=== PATIENT | female | born 1940 | race Caucasian/White ===

== ENCOUNTER 2019-02-22 15:07 | Inpatient (IN) | payer OTHER ==
[2019-02-22] MEDS: morphine 2 MG INJ IV (15:28)
[2019-02-22] MEDS: SOD CHLORIDE 0.9% 500 ML IV (15:28)
[2019-02-22] MEDS: ONDANSETRON 4 MG INJ IV (15:28)
[2019-02-22 15:32] LABS: ADD MAN DIFF? NO
[2019-02-22 15:38] LABS: WHITE BLOOD COUNT 8.4 10^3/ul (4.8-10.8)
[2019-02-22 15:38] LABS: BASOPHIL # 0.1 10^3/ul (0.0-0.1); BASOPHILS % 0.6 % (0.0-2.0); EOSINOPHILS # 0.5 10^3/ul (0.0-0.5); HEMATOCRIT 28.8 % (37.0-47.0); HEMOGLOBIN 9.1 g/dl (12.0-16.0); LYMPHOCYTES # 1.6 10^3/ul (0.8-2.9); LYMPHOCYTES % 18.5 % (15.0-51.0); MEAN CORPUSCULAR HEMOGLOBIN 27.1 pg (29.0-33.0); MEAN CORPUSCULAR HGB CONC 31.6 g/dl (32.0-37.0); MEAN CORPUSCULAR VOLUME 85.7 fl (82.0-101.0); MONOCYTE # 0.9 10^3/ul (0.3-0.9); MONOCYTES % 10.8 % (0.0-11.0); NEUTROPHIL # 5.3 10^3/ul (1.6-7.5); NEUTROPHILS % 63.6 % (39.0-77.0); PLATELET COUNT 408 10^3/UL (140-415); RED BLOOD COUNT 3.36 10^6/ul (4.20-5.40); RED CELL DISTRIBUTION WIDTH 19.1 % (11.5-14.5)
[2019-02-22 15:58] LABS: INR 1.88; PROTIME 21.7 Sec (11.9-14.9); PT RATIO 1.7
[2019-02-22 15:59] LABS: PARTIAL THROMBOPLASTIN TIME 58.7 Sec (23.0-35.0)
[2019-02-22 16:05] LABS: ALANINE AMINOTRANSFERASE 76 IU/L (13-69); ALBUMIN/GLOBULIN RATIO 0.75; ALKALINE PHOSPHATASE 171 IU/L (42-121); ANION GAP 7 (5-13); ASPARTATE AMINO TRANSFERASE 100 IU/L (15-46); BILIRUBIN,INDIRECT 0.6 mg/dl (0-1.1); BILIRUBIN,TOTAL 0.6 mg/dl (0.2-1.3); BLOOD UREA NITROGEN 25 mg/dl (7-20); CALCIUM 8.3 mg/dl (8.4-10.2); CARBON DIOXIDE 28 mmol/L (21-31); CHLORIDE 102 mmol/L (97-110); CREATINE KINASE 24 IU/L (23-200); CREATININE 1.06 mg/dl (0.44-1.00); GLUCOSE 137 mg/dl (70-220); POTASSIUM 4.9 mmol/L (3.5-5.1); SODIUM 137 mmol/L (135-144)
[2019-02-22 16:15] LABS: B-TYPE NATRIURETIC PEPTIDE 3910 PG/ML (0-450); CK INDEX 1.4; CK-MB 0.34 ng/ml (0.0-2.4); TROPONIN-I < 0.012 ng/ml (0.000-0.120)
[2019-02-22] MEDS: CEFEPIME 2GM/50 ML (PMX) 50 ML IVPB (16:20)
[2019-02-22] MEDS: VANCOMYCIN 1 GM (PMX) 250 ML IVPB (17:05)
[2019-02-22] MEDS ORDERED: ACETAMINOPHEN 325 MG TAB PO (17:30)
[2019-02-22] MEDS ORDERED: ONDANSETRON 4 MG INJ IV (17:30)
[2019-02-22] MEDS: SOD CHLORIDE 0.9% 1,000 ML IV ×2 (17:47→18:44)
[2019-02-22] MEDS ORDERED: NACL 0.9% 3 ML SYG IV (18:00)
[2019-02-22] MEDS: FAMOTIDINE 20 MG INJ IV (21:30)
[2019-02-23] MEDS: ACETAMINOPHEN 325 MG TAB PO (00:57)
[2019-02-23] MEDS: CEFEPIME 2GM/50 ML (PMX) 50 ML IVPB ×2 (06:12→16:09)
[2019-02-23] MEDS: SOD CHLORIDE 0.9% 1,000 ML IV ×2 (06:12→16:41)
[2019-02-23 06:34] LABS: ADD MAN DIFF? NO
[2019-02-23 06:37] LABS: BASOPHIL # 0.1 10^3/ul (0.0-0.1); BASOPHILS % 0.7 % (0.0-2.0); EOSINOPHILS # 0.8 10^3/ul (0.0-0.5); EOSINOPHILS % 10.4 % (0.0-7.0); HEMATOCRIT 27.3 % (37.0-47.0); HEMOGLOBIN 8.6 g/dl (12.0-16.0); LYMPHOCYTES # 1.5 10^3/ul (0.8-2.9); LYMPHOCYTES % 20.1 % (15.0-51.0); MEAN CORPUSCULAR HEMOGLOBIN 26.9 pg (29.0-33.0); MEAN CORPUSCULAR HGB CONC 31.5 g/dl (32.0-37.0); MEAN CORPUSCULAR VOLUME 85.3 fl (82.0-101.0); MEAN PLATELET VOLUME 9.1 fl (7.4-10.4); MONOCYTE # 0.9 10^3/ul (0.3-0.9); MONOCYTES % 11.7 % (0.0-11.0); NEUTROPHIL # 4.2 10^3/ul (1.6-7.5); NEUTROPHILS % 56.4 % (39.0-77.0); PLATELET COUNT 379 10^3/UL (140-415); RED CELL DISTRIBUTION WIDTH 19.2 % (11.5-14.5)
[2019-02-23 06:37] LABS: WHITE BLOOD COUNT 7.4 10^3/ul (4.8-10.8)
[2019-02-23 06:53] LABS: ALANINE AMINOTRANSFERASE 80 IU/L (13-69); ALBUMIN 2.7 g/dl (3.3-4.9); ALBUMIN/GLOBULIN RATIO 0.79; ALKALINE PHOSPHATASE 154 IU/L (42-121); ANION GAP 5 (5-13); ASPARTATE AMINO TRANSFERASE 99 IU/L (15-46); BILIRUBIN,INDIRECT 0.7 mg/dl (0-1.1); BILIRUBIN,TOTAL 0.7 mg/dl (0.2-1.3); BLOOD UREA NITROGEN 20 mg/dl (7-20); CALCIUM 8.4 mg/dl (8.4-10.2); CARBON DIOXIDE 29 mmol/L (21-31); CHLORIDE 106 mmol/L (97-110); CREATININE 1.03 mg/dl (0.44-1.00); GLUCOSE 79 mg/dl (70-220); POTASSIUM 4.3 mmol/L (3.5-5.1); SODIUM 140 mmol/L (135-144); TOTAL PROTEIN 6.1 g/dl (6.1-8.1)
[2019-02-23 07:25] LABS: HEMOGLOBIN A1C 6.1 % (0-5.9)
[2019-02-23] MEDS: FAMOTIDINE 20 MG INJ IV ×2 (08:24→20:29)
[2019-02-23] MEDS: morphine 2 MG INJ IV ×4 (08:24→20:31)
[2019-02-23] MEDS: ENOXAPARIN 30 MG/0.3 ML SYG SC (08:25)
[2019-02-23] MEDS ORDERED: DEXTROSE 50% 50 ML SYRINGE IV (11:30)
[2019-02-23] MEDS ORDERED: GLUCOSE GEL 15 GRAM TUBE PO ×2 (11:30)
[2019-02-23] MEDS ORDERED: GLUCAGON 1 MG INJ IM (11:30)
[2019-02-23] MEDS ORDERED: GLUCOSE GEL 15 GRAM TUBE BUCCAL (11:30)
[2019-02-23] MEDS: glipiZIDE 5 MG TAB PO (16:44)
[2019-02-23] MEDS: ATORVASTATIN 40 MG TAB PO (20:29)
[2019-02-23] MEDS: METOPROLOL 25 MG TAB PO (20:30)
[2019-02-23] MEDS: SENNA TAB PO (23:38)
[2019-02-24] MEDS: ONDANSETRON 4 MG INJ IV (01:44)
[2019-02-24] MEDS ORDERED: ACCU-CHEK XX (02:00)
[2019-02-24] MEDS: ACCU-CHEK XX (02:00)
[2019-02-24] MEDS: CEFEPIME 2GM/50 ML (PMX) 50 ML IVPB ×2 (03:37→15:30)
[2019-02-24] MEDS: SOD CHLORIDE 0.9% 1,000 ML IV (08:13)
[2019-02-24] MEDS: FAMOTIDINE 20 MG INJ IV (08:13)
[2019-02-24] MEDS: DOCUSATE SODIUM 100 MG CAP PO (08:14)
[2019-02-24] MEDS: FUROSEMIDE 20 MG TAB PO (08:14)
[2019-02-24] MEDS: ZINC SULFATE 220 MG CAP PO (08:14)
[2019-02-24] MEDS: glipiZIDE 5 MG TAB PO (08:15)
[2019-02-24] MEDS: METOPROLOL 25 MG TAB PO ×2 (08:15→20:45)
[2019-02-24] MEDS: CHOLECALCIFEROL 1,000 UNIT TAB PO (08:15)
[2019-02-24] MEDS: ENOXAPARIN 30 MG/0.3 ML SYG SC (08:16)
[2019-02-24] MEDS: morphine 2 MG INJ IV (09:09)
[2019-02-24] MEDS: INSULIN GLARGINE [LANTus] (100 UNITS/ML) SYG SC (09:11)
[2019-02-24] MEDS: DEXTROSE 50% 50 ML SYRINGE IV (13:22)
[2019-02-24] MEDS: INSULIN ASPART [NOVOLOG] 3 ML PEN SC ×2 (17:06→21:00)
[2019-02-24] MEDS: ATORVASTATIN 20 MG TAB PO (20:44)
[2019-02-24] MEDS: APIXABAN 5 MG TABLET PO (20:44)
[2019-02-24] MEDS: LORAZEPAM 0.5 MG TAB PO (21:00)
[2019-02-24] MEDS: FUROSEMIDE 40 MG INJ IV (21:54)
[2019-02-25] MEDS ORDERED: ACCU-CHEK XX (02:00)
[2019-02-25] MEDS: ACCU-CHEK XX (02:33)
[2019-02-25] MEDS: CEFEPIME 2GM/50 ML (PMX) 50 ML IVPB ×2 (03:45→16:21)
[2019-02-25] MEDS: LORAZEPAM 0.5 MG TAB PO ×2 (06:21→18:24)
[2019-02-25] MEDS: ACETAMINOPHEN 325 MG TAB PO (06:27)
[2019-02-25] MEDS: INSULIN ASPART [NOVOLOG] 3 ML PEN SC ×4 (07:55→20:30)
[2019-02-25] MEDS: CHOLECALCIFEROL 1,000 UNIT TAB PO (08:41)
[2019-02-25] MEDS: DOCUSATE SODIUM 100 MG CAP PO (08:41)
[2019-02-25] MEDS: FUROSEMIDE 20 MG TAB PO (08:41)
[2019-02-25] MEDS: ZINC SULFATE 220 MG CAP PO (08:41)
[2019-02-25] MEDS: METOPROLOL 25 MG TAB PO (08:41)
[2019-02-25] MEDS: APIXABAN 5 MG TABLET PO ×2 (08:41→20:28)
[2019-02-25] MEDS: INSULIN GLARGINE [LANTus] (100 UNITS/ML) SYG SC (08:41)
[2019-02-25] MEDS: DIGOXIN 500 MCG INJ IV (16:29)
[2019-02-25] MEDS ORDERED: DILTIAZEM 25 MG INJ IV (16:30)
[2019-02-25 17:56] LABS: ANION GAP 6 (5-13); BLOOD UREA NITROGEN 17 mg/dl (7-20); CALCIUM 8.4 mg/dl (8.4-10.2); CARBON DIOXIDE 30 mmol/L (21-31); CHLORIDE 101 mmol/L (97-110); CREATININE 1.02 mg/dl (0.44-1.00); GLUCOSE 148 mg/dl (70-220); SODIUM 137 mmol/L (135-144)
[2019-02-25] MEDS ORDERED: FUROSEMIDE 20 MG INJ IV (18:00)
[2019-02-25 18:08] LABS: TROPONIN-I < 0.012 ng/ml (0.000-0.120)
[2019-02-25] MEDS: FUROSEMIDE 20 MG INJ IV (18:26)
[2019-02-25] MEDS: METOPROLOL 50 MG TAB PO (20:29)
[2019-02-25] MEDS: ATORVASTATIN 20 MG TAB PO (20:29)
[2019-02-25] MEDS: MUPIROCIN 2% 22 GM OINT TOP (21:49)
[2019-02-26] MEDS: LEVALBUTEROL (NEB) 0.63 MG/3 ML AMP HHN ×4 (00:09→19:49)
[2019-02-26] MEDS ORDERED: LEVALBUTEROL (NEB) 0.63 MG/3 ML AMP (00:09)
[2019-02-26] MEDS: METHYLPREDNISOLONE 125 MG INJ IV (00:19)
[2019-02-26 01:29] LABS: TROPONIN-I < 0.012 ng/ml (0.000-0.120)
[2019-02-26] MEDS: LORAZEPAM 0.5 MG TAB PO ×2 (01:44→21:59)
[2019-02-26] MEDS: ACCU-CHEK XX (02:00)
[2019-02-26] MEDS: CEFEPIME 1GM/50 ML (PMX) 50 ML IVPB ×2 (03:32→15:33)
[2019-02-26 06:02] LABS: ADD MAN DIFF? NO
[2019-02-26 06:11] LABS: ABNORMAL IP MESSAGE 1; BASOPHILS % 0.3 % (0.0-2.0); EOSINOPHILS % 0.2 % (0.0-7.0); HEMATOCRIT 29.4 % (37.0-47.0); HEMOGLOBIN 9.3 g/dl (12.0-16.0); LYMPHOCYTES # 0.5 10^3/ul (0.8-2.9); LYMPHOCYTES % 7.7 % (15.0-51.0); MEAN CORPUSCULAR HGB CONC 31.6 g/dl (32.0-37.0); MEAN CORPUSCULAR VOLUME 85.2 fl (82.0-101.0); MEAN PLATELET VOLUME 9.3 fl (7.4-10.4); MONOCYTE # 0.1 10^3/ul (0.3-0.9); MONOCYTES % 1.5 % (0.0-11.0); NEUTROPHILS % 89.8 % (39.0-77.0); PLATELET COUNT 363 10^3/UL (140-415); RED BLOOD COUNT 3.45 10^6/ul (4.20-5.40); RED CELL DISTRIBUTION WIDTH 18.6 % (11.5-14.5)
[2019-02-26 06:11] LABS: WHITE BLOOD COUNT 6.7 10^3/ul (4.8-10.8)
[2019-02-26 06:23] LABS: POSITIVE DIFF @See below
[2019-02-26] MEDS: FUROSEMIDE 20 MG INJ IV ×2 (06:25→17:35)
[2019-02-26 06:41] LABS: CHOLESTEROL 84 mg/dl (100-200); HDL CHOLESTEROL 28 mg/dl (33-92); LDL CHOLESTEROL,CALCULATED 40 mg/dl; MAGNESIUM 1.9 mg/dl (1.7-2.5); TRIGLYCERIDES 82 mg/dl (0-149)
[2019-02-26 06:41] LABS: PHOSPHORUS 3.8 mg/dl (2.5-4.9)
[2019-02-26 06:43] LABS: ALANINE AMINOTRANSFERASE 101 IU/L (13-69); ALBUMIN 2.9 g/dl (3.3-4.9); ALBUMIN/GLOBULIN RATIO 0.78; ALKALINE PHOSPHATASE 171 IU/L (42-121); ANION GAP 5 (5-13); ASPARTATE AMINO TRANSFERASE 119 IU/L (15-46); BILIRUBIN,INDIRECT 0.7 mg/dl (0-1.1); BILIRUBIN,TOTAL 0.7 mg/dl (0.2-1.3); BLOOD UREA NITROGEN 17 mg/dl (7-20); CALCIUM 8.4 mg/dl (8.4-10.2); CARBON DIOXIDE 33 mmol/L (21-31); CHLORIDE 102 mmol/L (97-110); GLUCOSE 185 mg/dl (70-220); POTASSIUM 4.4 mmol/L (3.5-5.1); SODIUM 140 mmol/L (135-144); TOTAL PROTEIN 6.6 g/dl (6.1-8.1)
[2019-02-26 06:45] LABS: TROPONIN-I < 0.012 ng/ml (0.000-0.120)
[2019-02-26 07:06] LABS: THYROID STIMULATING HORMONE < 0.015 MIU/L (0.465-4.680)
[2019-02-26] MEDS: INSULIN ASPART [NOVOLOG] 3 ML PEN SC ×4 (07:52→20:22)
[2019-02-26] MEDS: MUPIROCIN 2% 22 GM OINT TOP ×2 (08:57→21:03)
[2019-02-26] MEDS: METOPROLOL 50 MG TAB PO ×2 (08:58→21:01)
[2019-02-26] MEDS: DOCUSATE SODIUM 100 MG CAP PO (08:58)
[2019-02-26] MEDS: ZINC SULFATE 220 MG CAP PO (08:58)
[2019-02-26] MEDS: APIXABAN 5 MG TABLET PO ×2 (08:59→21:02)
[2019-02-26] MEDS: CHOLECALCIFEROL 1,000 UNIT TAB PO (08:59)
[2019-02-26] MEDS: INSULIN GLARGINE [LANTus] (100 UNITS/ML) SYG SC (09:05)
[2019-02-26] MEDS: DIGOXIN 500 MCG INJ IV (14:25)
[2019-02-26] MEDS: ATORVASTATIN 20 MG TAB PO (21:01)
[2019-02-26] MEDS: DOXYCYCLINE 100 MG TAB PO (21:01)
[2019-02-26] MEDS: DILTIAZEM (CD) 120 MG CAP PO (21:02)
[2019-02-27] MEDS: ACCU-CHEK XX (02:00)
[2019-02-27] MEDS: LEVALBUTEROL (NEB) 0.63 MG/3 ML AMP HHN ×4 (02:17→19:59)
[2019-02-27] MEDS: CEFEPIME 1GM/50 ML (PMX) 50 ML IVPB ×2 (03:48→17:23)
[2019-02-27] MEDS: FUROSEMIDE 20 MG INJ IV ×2 (05:52→17:24)
[2019-02-27 07:14] LABS: ALANINE AMINOTRANSFERASE 96 IU/L (13-69); ALBUMIN 2.9 g/dl (3.3-4.9); ALBUMIN/GLOBULIN RATIO 0.82; ALKALINE PHOSPHATASE 154 IU/L (42-121); ANION GAP 6 (5-13); ASPARTATE AMINO TRANSFERASE 104 IU/L (15-46); BILIRUBIN,INDIRECT 0.7 mg/dl (0-1.1); BILIRUBIN,TOTAL 0.7 mg/dl (0.2-1.3); BLOOD UREA NITROGEN 24 mg/dl (7-20); CALCIUM 8.5 mg/dl (8.4-10.2); CARBON DIOXIDE 34 mmol/L (21-31); CHLORIDE 98 mmol/L (97-110); CREATININE 0.95 mg/dl (0.44-1.00); GLUCOSE 91 mg/dl (70-220); POTASSIUM 3.6 mmol/L (3.5-5.1); SODIUM 138 mmol/L (135-144); TOTAL PROTEIN 6.4 g/dl (6.1-8.1)
[2019-02-27] MEDS: INSULIN ASPART [NOVOLOG] 3 ML PEN SC ×7 (08:00→21:00)
[2019-02-27] MEDS: INSULIN GLARGINE [LANTus] (100 UNITS/ML) SYG SC (08:18)
[2019-02-27] MEDS: DOCUSATE SODIUM 100 MG CAP PO (09:00)
[2019-02-27] MEDS: MUPIROCIN 2% 22 GM OINT TOP ×2 (09:29→21:16)
[2019-02-27] MEDS: ZINC SULFATE 220 MG CAP PO (09:30)
[2019-02-27] MEDS: CHOLECALCIFEROL 1,000 UNIT TAB PO (09:30)
[2019-02-27] MEDS: DOXYCYCLINE 100 MG TAB PO ×2 (09:30→21:15)
[2019-02-27] MEDS: APIXABAN 5 MG TABLET PO ×2 (09:30→21:15)
[2019-02-27] MEDS: METOPROLOL 50 MG TAB PO ×2 (09:31→21:16)
[2019-02-27] MEDS: DILTIAZEM (CD) 120 MG CAP PO (09:31)
[2019-02-27] MEDS: morphine 2 MG INJ IV ×2 (09:36→16:12)
[2019-02-27] MEDS: DILTIAZEM (CD) 180 MG CAP PO (21:15)
[2019-02-27] MEDS: ATORVASTATIN 20 MG TAB PO (21:15)
[2019-02-28] MEDS: ACCU-CHEK XX (01:37)
[2019-02-28] MEDS: LEVALBUTEROL (NEB) 0.63 MG/3 ML AMP HHN ×4 (01:48→19:45)
[2019-02-28] MEDS: CEFEPIME 1GM/50 ML (PMX) 50 ML IVPB ×2 (05:07→17:20)
[2019-02-28] MEDS: FUROSEMIDE 20 MG INJ IV ×2 (05:08→17:20)
[2019-02-28 05:39] LABS: HAAIG REFLEX REFLEX FILED
[2019-02-28 07:03] LABS: HEPATITIS B CORE ANTIBODY NEGATIVE (NEGATIVE); HEPATITIS C VIRAL ANTIBODY NEGATIVE (NEGATIVE)
[2019-02-28] MEDS: INSULIN ASPART [NOVOLOG] 3 ML PEN SC ×7 (07:28→20:01)
[2019-02-28 07:52] LABS: HEPATITIS B SURFACE ANTIGEN NEGATIVE (NEGATIVE)
[2019-02-28] MEDS: APIXABAN 5 MG TABLET PO ×2 (09:40→20:03)
[2019-02-28] MEDS: DOXYCYCLINE 100 MG TAB PO ×2 (09:40→20:02)
[2019-02-28] MEDS: DOCUSATE SODIUM 100 MG CAP PO (09:40)
[2019-02-28] MEDS: CHOLECALCIFEROL 1,000 UNIT TAB PO (09:40)
[2019-02-28] MEDS: ZINC SULFATE 220 MG CAP PO (09:40)
[2019-02-28] MEDS: METOPROLOL 50 MG TAB PO (09:41)
[2019-02-28] MEDS: DILTIAZEM (CD) 180 MG CAP PO ×2 (09:41→20:03)
[2019-02-28] MEDS: INSULIN GLARGINE [LANTus] (100 UNITS/ML) SYG SC (09:49)
[2019-02-28] MEDS: MUPIROCIN 2% 22 GM OINT TOP ×2 (09:49→20:01)
[2019-02-28] MEDS: LORAZEPAM 0.5 MG TAB PO (10:11)
[2019-02-28] MEDS: ONDANSETRON 4 MG INJ IV (17:19)
[2019-02-28] MEDS: morphine 2 MG INJ IV (17:19)
[2019-02-28] MEDS: ATORVASTATIN 20 MG TAB PO (20:02)
[2019-02-28] MEDS: METOPROLOL 25 MG TAB PO (20:06)
[2019-02-28] MEDS ORDERED: METOPROLOL 50 MG TAB PO (21:00)
[2019-02-28] MEDS: hydrOXYzine HCL 25 MG TAB PO (23:06)
[2019-03-01] MEDS: ACCU-CHEK XX (01:12)
[2019-03-01] MEDS: LEVALBUTEROL (NEB) 0.63 MG/3 ML AMP HHN ×4 (01:39→20:19)
[2019-03-01] MEDS: CEFEPIME 1GM/50 ML (PMX) 50 ML IVPB ×2 (05:21→17:40)
[2019-03-01] MEDS: FUROSEMIDE 20 MG INJ IV (05:21)
[2019-03-01 06:13] LABS: ADD MAN DIFF? NO
[2019-03-01 06:22] LABS: BASOPHILS % 0.4 % (0.0-2.0); EOSINOPHILS # 0.7 10^3/ul (0.0-0.5); EOSINOPHILS % 6.4 % (0.0-7.0); HEMATOCRIT 30.2 % (37.0-47.0); HEMOGLOBIN 9.6 g/dl (12.0-16.0); LYMPHOCYTES # 2.3 10^3/ul (0.8-2.9); LYMPHOCYTES % 21.1 % (15.0-51.0); MEAN CORPUSCULAR HEMOGLOBIN 26.8 pg (29.0-33.0); MEAN CORPUSCULAR HGB CONC 31.8 g/dl (32.0-37.0); MEAN CORPUSCULAR VOLUME 84.4 fl (82.0-101.0); MEAN PLATELET VOLUME 9.2 fl (7.4-10.4); MONOCYTE # 1.1 10^3/ul (0.3-0.9); MONOCYTES % 10.4 % (0.0-11.0); NEUTROPHIL # 6.6 10^3/ul (1.6-7.5); NEUTROPHILS % 60.8 % (39.0-77.0); PLATELET COUNT 368 10^3/UL (140-415); RED BLOOD COUNT 3.58 10^6/ul (4.20-5.40); RED CELL DISTRIBUTION WIDTH 18.5 % (11.5-14.5)
[2019-03-01 06:22] LABS: WHITE BLOOD COUNT 10.9 10^3/ul (4.8-10.8)
[2019-03-01 06:43] LABS: ANION GAP 6 (5-13); BLOOD UREA NITROGEN 25 mg/dl (7-20); CALCIUM 8.3 mg/dl (8.4-10.2); CARBON DIOXIDE 34 mmol/L (21-31); CHLORIDE 98 mmol/L (97-110); CREATININE 1.13 mg/dl (0.44-1.00); GLUCOSE 79 mg/dl (70-220); POTASSIUM 3.9 mmol/L (3.5-5.1); SODIUM 138 mmol/L (135-144)
[2019-03-01] MEDS: INSULIN ASPART [NOVOLOG] 3 ML PEN SC ×7 (08:00→20:38)
[2019-03-01] MEDS: APIXABAN 5 MG TABLET PO ×2 (09:03→20:40)
[2019-03-01] MEDS: DOXYCYCLINE 100 MG TAB PO ×2 (09:04→20:42)
[2019-03-01] MEDS: METOPROLOL 25 MG TAB PO ×2 (09:04→20:41)
[2019-03-01] MEDS: CHOLECALCIFEROL 1,000 UNIT TAB PO (09:04)
[2019-03-01] MEDS: DILTIAZEM (CD) 180 MG CAP PO ×2 (09:05→20:41)
[2019-03-01] MEDS: DOCUSATE SODIUM 100 MG CAP PO (09:05)
[2019-03-01] MEDS: ZINC SULFATE 220 MG CAP PO (09:05)
[2019-03-01] MEDS: INSULIN GLARGINE [LANTus] (100 UNITS/ML) SYG SC (09:09)
[2019-03-01] MEDS: MUPIROCIN 2% 22 GM OINT TOP ×2 (09:51→20:42)
[2019-03-01] MEDS: morphine 2 MG INJ IV (17:40)
[2019-03-01] MEDS: BISACODYL (EC) 5 MG TAB PO (17:40)
[2019-03-01] MEDS: ATORVASTATIN 20 MG TAB PO (20:40)
[2019-03-01] MEDS: LORAZEPAM 0.5 MG TAB PO (20:48)
[2019-03-01] MEDS: hydrOXYzine HCL 25 MG TAB PO (21:33)
[2019-03-02] MEDS: SENNA TAB PO (00:07)
[2019-03-02] MEDS: LEVALBUTEROL (NEB) 0.63 MG/3 ML AMP HHN ×4 (02:05→20:21)
[2019-03-02] MEDS: ACCU-CHEK XX (02:58)
[2019-03-02] MEDS: BISACODYL (EC) 5 MG TAB PO (04:36)
[2019-03-02] MEDS: CEFEPIME 1GM/50 ML (PMX) 50 ML IVPB ×2 (04:36→17:29)
[2019-03-02 06:24] LABS: ADD MAN DIFF? NO
[2019-03-02 06:29] LABS: BASOPHIL # 0.1 10^3/ul (0.0-0.1); BASOPHILS % 0.6 % (0.0-2.0); EOSINOPHILS # 0.7 10^3/ul (0.0-0.5); EOSINOPHILS % 6.6 % (0.0-7.0); HEMATOCRIT 31.1 % (37.0-47.0); HEMOGLOBIN 9.9 g/dl (12.0-16.0); LYMPHOCYTES # 2.7 10^3/ul (0.8-2.9); LYMPHOCYTES % 24.6 % (15.0-51.0); MEAN CORPUSCULAR HEMOGLOBIN 26.8 pg (29.0-33.0); MEAN CORPUSCULAR HGB CONC 31.8 g/dl (32.0-37.0); MEAN CORPUSCULAR VOLUME 84.3 fl (82.0-101.0); MEAN PLATELET VOLUME 9.7 fl (7.4-10.4); MONOCYTE # 1.1 10^3/ul (0.3-0.9); MONOCYTES % 9.8 % (0.0-11.0); NEUTROPHIL # 6.2 10^3/ul (1.6-7.5); NEUTROPHILS % 57.4 % (39.0-77.0); PLATELET COUNT 383 10^3/UL (140-415); RED BLOOD COUNT 3.69 10^6/ul (4.20-5.40); RED CELL DISTRIBUTION WIDTH 18.5 % (11.5-14.5)
[2019-03-02 06:29] LABS: WHITE BLOOD COUNT 10.8 10^3/ul (4.8-10.8)
[2019-03-02 07:28] LABS: ANION GAP 6 (5-13); BLOOD UREA NITROGEN 32 mg/dl (7-20); CALCIUM 8.4 mg/dl (8.4-10.2); CARBON DIOXIDE 32 mmol/L (21-31); CHLORIDE 97 mmol/L (97-110); CREATININE 1.22 mg/dl (0.44-1.00); GLUCOSE 80 mg/dl (70-220); POTASSIUM 3.9 mmol/L (3.5-5.1); SODIUM 135 mmol/L (135-144)
[2019-03-02] MEDS: INSULIN ASPART [NOVOLOG] 3 ML PEN SC ×7 (08:00→20:52)
[2019-03-02] MEDS: DEXTROSE 5%-0.45% NACL 1,000 ML IV (08:52)
[2019-03-02] MEDS: MUPIROCIN 2% 22 GM OINT TOP ×2 (08:53→20:53)
[2019-03-02] MEDS: APIXABAN 5 MG TABLET PO ×2 (08:53→20:51)
[2019-03-02] MEDS: ZINC SULFATE 220 MG CAP PO (08:54)
[2019-03-02] MEDS: DOXYCYCLINE 100 MG TAB PO ×2 (08:54→20:51)
[2019-03-02] MEDS: DILTIAZEM (CD) 180 MG CAP PO ×2 (08:54→20:51)
[2019-03-02] MEDS: CHOLECALCIFEROL 1,000 UNIT TAB PO (08:54)
[2019-03-02] MEDS: METOPROLOL 25 MG TAB PO ×2 (08:54→20:51)
[2019-03-02] MEDS: FUROSEMIDE 20 MG INJ IV (08:55)
[2019-03-02] MEDS: DOCUSATE SODIUM 100 MG CAP PO (08:55)
[2019-03-02] MEDS: hydrOXYzine HCL 25 MG TAB PO ×2 (08:55→17:31)
[2019-03-02] MEDS: INSULIN GLARGINE [LANTus] (100 UNITS/ML) SYG SC (08:56)
[2019-03-02] MEDS: morphine 2 MG INJ IV ×2 (12:27)
[2019-03-02] MEDS: LORAZEPAM 0.5 MG TAB PO (20:51)
[2019-03-02] MEDS: ACETAMINOPHEN 325 MG TAB PO (20:51)
[2019-03-02] MEDS: ATORVASTATIN 20 MG TAB PO (20:51)
[2019-03-03] MEDS: ACCU-CHEK XX (02:00)
[2019-03-03] MEDS: LEVALBUTEROL (NEB) 0.63 MG/3 ML AMP HHN ×4 (02:02→21:13)
[2019-03-03] MEDS: hydrOXYzine HCL 25 MG TAB PO ×3 (02:50→19:39)
[2019-03-03] MEDS: BISACODYL (EC) 5 MG TAB PO (02:50)
[2019-03-03] MEDS: DEXTROSE 5%-0.45% NACL 1,000 ML IV ×3 (03:30→23:30)
[2019-03-03] MEDS: ACETAMINOPHEN 325 MG TAB PO ×2 (04:58→19:39)
[2019-03-03] MEDS: CEFEPIME 1GM/50 ML (PMX) 50 ML IVPB (04:58)
[2019-03-03 06:07] LABS: ADD MAN DIFF? NO
[2019-03-03 06:29] LABS: BASOPHILS % 0.4 % (0.0-2.0); EOSINOPHILS # 0.8 10^3/ul (0.0-0.5); EOSINOPHILS % 7.3 % (0.0-7.0); HEMATOCRIT 29.2 % (37.0-47.0); HEMOGLOBIN 9.4 g/dl (12.0-16.0); LYMPHOCYTES # 2.5 10^3/ul (0.8-2.9); LYMPHOCYTES % 23.7 % (15.0-51.0); MEAN CORPUSCULAR HEMOGLOBIN 26.7 pg (29.0-33.0); MEAN CORPUSCULAR HGB CONC 32.2 g/dl (32.0-37.0); MEAN PLATELET VOLUME 9.8 fl (7.4-10.4); MONOCYTE # 1.2 10^3/ul (0.3-0.9); MONOCYTES % 11.3 % (0.0-11.0); NEUTROPHILS % 56.4 % (39.0-77.0); PLATELET COUNT 340 10^3/UL (140-415); RED BLOOD COUNT 3.52 10^6/ul (4.20-5.40); RED CELL DISTRIBUTION WIDTH 18.6 % (11.5-14.5)
[2019-03-03 06:29] LABS: WHITE BLOOD COUNT 10.5 10^3/ul (4.8-10.8)
[2019-03-03 06:41] LABS: INR 2.12; PROTIME 23.8 Sec (11.9-14.9); PT RATIO 1.9
[2019-03-03 06:44] LABS: B-TYPE NATRIURETIC PEPTIDE 2600 PG/ML (0-450)
[2019-03-03 06:58] LABS: MAGNESIUM 2.2 mg/dl (1.7-2.5)
[2019-03-03 07:42] LABS: ALANINE AMINOTRANSFERASE 113 IU/L (13-69); ALBUMIN 2.6 g/dl (3.3-4.9); ALBUMIN/GLOBULIN RATIO 0.74; ALKALINE PHOSPHATASE 154 IU/L (42-121); ANION GAP 7 (5-13); ASPARTATE AMINO TRANSFERASE 94 IU/L (15-46); BILIRUBIN,INDIRECT 0.5 mg/dl (0-1.1); BILIRUBIN,TOTAL 0.5 mg/dl (0.2-1.3); BLOOD UREA NITROGEN 47 mg/dl (7-20); CALCIUM 7.9 mg/dl (8.4-10.2); CARBON DIOXIDE 30 mmol/L (21-31); CHLORIDE 96 mmol/L (97-110); CREATININE 1.43 mg/dl (0.44-1.00); GLUCOSE 130 mg/dl (70-220); POTASSIUM 4.2 mmol/L (3.5-5.1); SODIUM 133 mmol/L (135-144); TOTAL PROTEIN 6.1 g/dl (6.1-8.1)
[2019-03-03] MEDS: INSULIN ASPART [NOVOLOG] 3 ML PEN SC ×7 (08:00→20:44)
[2019-03-03] MEDS: DOCUSATE SODIUM 100 MG CAP PO (09:00)
[2019-03-03] MEDS: METOPROLOL 25 MG TAB PO ×2 (09:00→20:43)
[2019-03-03] MEDS: DILTIAZEM (CD) 180 MG CAP PO ×2 (09:00→20:43)
[2019-03-03] MEDS: ZINC SULFATE 220 MG CAP PO (10:07)
[2019-03-03] MEDS: FUROSEMIDE 20 MG INJ IV (10:08)
[2019-03-03] MEDS: DOXYCYCLINE 100 MG TAB PO (10:14)
[2019-03-03] MEDS: MUPIROCIN 2% 22 GM OINT TOP ×2 (10:15→20:44)
[2019-03-03] MEDS: INSULIN GLARGINE [LANTus] (100 UNITS/ML) SYG SC (10:15)
[2019-03-03] MEDS: CHOLECALCIFEROL 1,000 UNIT TAB PO (10:16)
[2019-03-03] MEDS: APIXABAN 5 MG TABLET PO ×2 (10:17→20:43)
[2019-03-03] MEDS: DIPHENHYDRAMINE 2%/ZINC 28.4 GM CR TOP ×2 (12:20→19:40)
[2019-03-03] MEDS: morphine 2 MG INJ IV (12:22)
[2019-03-03] MEDS: ATORVASTATIN 20 MG TAB PO (20:42)
[2019-03-04] MEDS: LORAZEPAM 0.5 MG TAB PO ×2 (00:25→20:06)
[2019-03-04] MEDS: ACCU-CHEK XX (02:00)
[2019-03-04] MEDS: LEVALBUTEROL (NEB) 0.63 MG/3 ML AMP HHN ×4 (02:17→21:10)
[2019-03-04] MEDS: hydrOXYzine HCL 25 MG TAB PO ×2 (05:34→19:18)
[2019-03-04 05:50] LABS: ADD MAN DIFF? NO
[2019-03-04 05:54] LABS: BASOPHIL # 0.1 10^3/ul (0.0-0.1); BASOPHILS % 0.6 % (0.0-2.0); EOSINOPHILS # 0.8 10^3/ul (0.0-0.5); EOSINOPHILS % 8.4 % (0.0-7.0); HEMATOCRIT 30.5 % (37.0-47.0); HEMOGLOBIN 9.7 g/dl (12.0-16.0); LYMPHOCYTES # 2.1 10^3/ul (0.8-2.9); LYMPHOCYTES % 20.7 % (15.0-51.0); MEAN CORPUSCULAR HEMOGLOBIN 26.2 pg (29.0-33.0); MEAN CORPUSCULAR HGB CONC 31.8 g/dl (32.0-37.0); MEAN CORPUSCULAR VOLUME 82.4 fl (82.0-101.0); MEAN PLATELET VOLUME 9.9 fl (7.4-10.4); MONOCYTES % 9.8 % (0.0-11.0); NEUTROPHILS % 59.6 % (39.0-77.0); PLATELET COUNT 338 10^3/UL (140-415); RED CELL DISTRIBUTION WIDTH 18.6 % (11.5-14.5)
[2019-03-04 06:20] LABS: ANION GAP 6 (5-13); BLOOD UREA NITROGEN 41 mg/dl (7-20); CALCIUM 8.6 mg/dl (8.4-10.2); CARBON DIOXIDE 30 mmol/L (21-31); CHLORIDE 97 mmol/L (97-110); CREATININE 1.34 mg/dl (0.44-1.00); GLUCOSE 83 mg/dl (70-220); SODIUM 133 mmol/L (135-144)
[2019-03-04] MEDS: INSULIN ASPART [NOVOLOG] 3 ML PEN SC ×7 (08:00→20:10)
[2019-03-04] MEDS: INSULIN GLARGINE [LANTus] (100 UNITS/ML) SYG SC (09:00)
[2019-03-04] MEDS: MUPIROCIN 2% 22 GM OINT TOP ×2 (09:00→21:27)
[2019-03-04] MEDS: APIXABAN 5 MG TABLET PO ×2 (09:01→20:06)
[2019-03-04] MEDS: CHOLECALCIFEROL 1,000 UNIT TAB PO (09:01)
[2019-03-04] MEDS: DILTIAZEM (CD) 180 MG CAP PO ×2 (09:01→20:05)
[2019-03-04] MEDS: DOCUSATE SODIUM 100 MG CAP PO (09:01)
[2019-03-04] MEDS: ZINC SULFATE 220 MG CAP PO (09:01)
[2019-03-04] MEDS: METOPROLOL 25 MG TAB PO ×2 (09:01→20:05)
[2019-03-04] MEDS: morphine 2 MG INJ IV ×2 (13:07→23:08)
[2019-03-04] MEDS: DEXTROSE 5%-0.45% NACL 1,000 ML IV (18:53)
[2019-03-04] MEDS: ACETAMINOPHEN 325 MG TAB PO (20:06)
[2019-03-04] MEDS: ATORVASTATIN 20 MG TAB PO (20:06)
[2019-03-04] MEDS: SENNA TAB PO (20:06)
[2019-03-04] MEDS: DIPHENHYDRAMINE 2%/ZINC 28.4 GM CR TOP (21:27)
[2019-03-04] MEDS: BISACODYL (EC) 5 MG TAB PO (21:27)
[2019-03-05] MEDS: hydrOXYzine HCL 25 MG TAB PO ×3 (01:35→19:28)
[2019-03-05] MEDS: ACCU-CHEK XX (02:00)
[2019-03-05] MEDS: LEVALBUTEROL (NEB) 0.63 MG/3 ML AMP HHN ×4 (02:08→20:18)
[2019-03-05] MEDS: LORAZEPAM 0.5 MG TAB PO (03:51)
[2019-03-05] MEDS: FUROSEMIDE 20 MG TAB PO ×2 (05:18→17:44)
[2019-03-05] MEDS: ACETAMINOPHEN 325 MG TAB PO ×2 (05:18→20:53)
[2019-03-05] MEDS: DEXTROSE 5%-0.45% NACL 1,000 ML IV (05:19)
[2019-03-05 05:47] LABS: RETICULOCYTE COUNT # 0.117 X10^6 (0.020-0.110); RETICULOCYTE COUNT % 3.3 % (0.5-1.5)
[2019-03-05 05:47] LABS: RETICULOCYTE RBC 3.56
[2019-03-05 05:52] LABS: ALANINE AMINOTRANSFERASE 100 IU/L (13-69); ALBUMIN 2.8 g/dl (3.3-4.9); ALKALINE PHOSPHATASE 164 IU/L (42-121); ANION GAP 8 (5-13); ASPARTATE AMINO TRANSFERASE 85 IU/L (15-46); BILIRUBIN,INDIRECT 0.5 mg/dl (0-1.1); BILIRUBIN,TOTAL 0.5 mg/dl (0.2-1.3); BLOOD UREA NITROGEN 38 mg/dl (7-20); CALCIUM 8.2 mg/dl (8.4-10.2); CARBON DIOXIDE 29 mmol/L (21-31); CHLORIDE 98 mmol/L (97-110); GLUCOSE 83 mg/dl (70-220); POTASSIUM 3.9 mmol/L (3.5-5.1); SODIUM 135 mmol/L (135-144); TOTAL PROTEIN 6.3 g/dl (6.1-8.1)
[2019-03-05 07:40] LABS: IRON 44 ug/dl (35-150)
[2019-03-05 07:49] LABS: % IRON SATURATION 20 % SAT (22-52); TOTAL IRON BINDING CAPACITY 219 ug/dl (241-421)
[2019-03-05] MEDS: INSULIN ASPART [NOVOLOG] 3 ML PEN SC ×7 (08:00→20:48)
[2019-03-05] MEDS: MUPIROCIN 2% 22 GM OINT TOP ×2 (09:00→20:53)
[2019-03-05] MEDS: APIXABAN 5 MG TABLET PO ×2 (09:14→20:55)
[2019-03-05] MEDS: ZINC SULFATE 220 MG CAP PO (09:14)
[2019-03-05] MEDS: DILTIAZEM (CD) 180 MG CAP PO ×2 (09:15→20:54)
[2019-03-05] MEDS: METOPROLOL 25 MG TAB PO ×2 (09:15→20:54)
[2019-03-05] MEDS: DOCUSATE SODIUM 100 MG CAP PO (09:16)
[2019-03-05] MEDS: CHOLECALCIFEROL 1,000 UNIT TAB PO (09:16)
[2019-03-05] MEDS: INSULIN GLARGINE [LANTus] (100 UNITS/ML) SYG SC (09:22)
[2019-03-05 13:47] LABS: FOLATE 7.4 ng/ml (2.8-20.0)
[2019-03-05] MEDS: DIPHENHYDRAMINE 2%/ZINC 28.4 GM CR TOP (15:21)
[2019-03-05] MEDS: ATORVASTATIN 20 MG TAB PO (20:53)
[2019-03-05] MEDS: DIPHENHYDRAMINE 25 MG CAP PO (22:45)
[2019-03-06] MEDS: hydrOXYzine HCL 25 MG TAB PO ×2 (00:23→16:25)
[2019-03-06] MEDS: LORAZEPAM 0.5 MG TAB PO (00:35)
[2019-03-06] MEDS: ACCU-CHEK XX (02:00)
[2019-03-06] MEDS: LEVALBUTEROL (NEB) 0.63 MG/3 ML AMP HHN ×3 (02:17→14:14)
[2019-03-06] MEDS: FUROSEMIDE 20 MG TAB PO ×2 (06:34→17:41)
[2019-03-06 07:13] LABS: ALANINE AMINOTRANSFERASE 98 IU/L (13-69); ALKALINE PHOSPHATASE 171 IU/L (42-121); ANION GAP 7 (5-13); ASPARTATE AMINO TRANSFERASE 91 IU/L (15-46); BILIRUBIN,INDIRECT 0.7 mg/dl (0-1.1); BILIRUBIN,TOTAL 0.7 mg/dl (0.2-1.3); BLOOD UREA NITROGEN 37 mg/dl (7-20); CALCIUM 8.6 mg/dl (8.4-10.2); CARBON DIOXIDE 29 mmol/L (21-31); CHLORIDE 97 mmol/L (97-110); CREATININE 1.38 mg/dl (0.44-1.00); GLUCOSE 95 mg/dl (70-220); SODIUM 133 mmol/L (135-144); TOTAL PROTEIN 6.3 g/dl (6.1-8.1)
[2019-03-06] MEDS: INSULIN ASPART [NOVOLOG] 3 ML PEN SC ×6 (08:00→17:44)
[2019-03-06] MEDS: MUPIROCIN 2% 22 GM OINT TOP (08:48)
[2019-03-06] MEDS: METOPROLOL 25 MG TAB PO (08:49)
[2019-03-06] MEDS: DIPHENHYDRAMINE 25 MG CAP PO ×2 (08:50→14:00)
[2019-03-06] MEDS: APIXABAN 5 MG TABLET PO (08:50)
[2019-03-06] MEDS: CHOLECALCIFEROL 1,000 UNIT TAB PO (08:50)
[2019-03-06] MEDS: DIPHENHYDRAMINE 2%/ZINC 28.4 GM CR TOP (08:51)
[2019-03-06] MEDS: INSULIN GLARGINE [LANTus] (100 UNITS/ML) SYG SC (09:01)
[2019-03-06] MEDS: ACETAMINOPHEN 325 MG TAB PO ×2 (09:12→16:25)
[2019-03-06] MEDS: ZINC SULFATE 220 MG CAP PO (09:14)
[2019-03-06] MEDS: DOCUSATE SODIUM 100 MG CAP PO (09:14)
[2019-03-06] MEDS: DILTIAZEM (CD) 180 MG CAP PO (09:14)
[2019-03-06] MEDS ORDERED: SOD CHLORIDE 0.45% 1,000 ML IV (14:00)
== END 2019-03-06 19:11 | DRG 193 ==
LOC: 6WM 02-25 13:03 → E/R 15:07 → TEL 17:20
DX: J18.9 Pneumonia, unspecified organism (principal); I50.43 Acute on chronic combined systolic (congestive) and diastolic (congestive) heart failure; I48.92 Unspecified atrial flutter; N17.9 Acute kidney failure, unspecified; I11.0 Hypertensive heart disease with heart failure; I48.2 Chronic atrial fibrillation; E11.8 Type 2 diabetes mellitus with unspecified complications; K76.0 Fatty (change of) liver, not elsewhere classified; E78.00 Pure hypercholesterolemia, unspecified; E66.9 Obesity, unspecified; Z68.26 Body mass index [BMI] 26.0-26.9, adult; Z74.01 Bed confinement status; S72.141D Displaced intertrochanteric fracture of right femur, subsequent encounter for closed fracture with routine healing; D64.9 Anemia, unspecified; N28.9 Disorder of kidney and ureter, unspecified; Z79.02 Long term (current) use of antithrombotics/antiplatelets; Z79.4 Long term (current) use of insulin; Z22.322 Carrier or suspected carrier of Methicillin resistant Staphylococcus aureus; R41.9 Unspecified symptoms and signs involving cognitive functions and awareness; F32.9 Major depressive disorder, single episode, unspecified; R32 Unspecified urinary incontinence
CPT/HCPCS: 71045; 76700; 80048; 80053; 80061; 82550; 82553; 82607; 82728; 82746; 82962; 83036; 83540; 83735; 83880; 84100; 84443; 84484; 85025; 85045; 85610; 85730; 86704; 86709; 86803; 87040-91; 87081; 87340; 92526; 92610; 93005; 93306; 94640; 94664; 96374; 96375; 99285-25